=== PATIENT | female | born 1990 | race African-American/Black ===

== ENCOUNTER → 2019-09-13 | Outpatient (CLI) | payer OTHER ==
[2019-09-13 18:04] LABS: ABSOLUTE LYMPHOCYTES (AUTO) 2.2 10^3/uL (0.5-4.7); ABSOLUTE MONOCYTES (AUTO) 0.7 10^3/uL (0.1-1.4); ABSOLUTE NEUT (AUTO) 7.5 10^3/uL (1.7-8.2); BASOPHILS % (AUTO) 0.3 % (0-2); EOSINOPHILS % (AUTO) 0.4 % (0-6); HEMATOCRIT 36.1 % (36.0-47.0); HEMOGLOBIN 12.3 g/dL (12.0-15.5); LYMPHOCYTES % (AUTO) 20.8 % (13-45); MEAN CORPUSCULAR HEMOGLOBIN 28.5 pg (27.0-33.4); MEAN CORPUSCULAR HGB CONC 34.2 g/dL (32.0-36.0); MEAN CORPUSCULAR VOLUME 84 fl (80-97); MONOCYTES % (AUTO) 6.6 % (3-13); PLATELET COUNT 234 10^3/uL (150-450); RED BLOOD COUNT 4.33 10^6/uL (3.72-5.28); SEGMENTED NEUTROPHILS % (AUTO) 71.9 % (42-78); TOTAL CELLS COUNTED % (AUTO) 100 %; WHITE BLOOD COUNT 10.4 10^3/uL (4.0-10.5)
[2019-09-15 07:37] LABS: HEPATITIS C VIRUS AB <0.1 s/co ratio (0.0-0.9)
[2019-09-16 07:21] LABS: HEPATITS B SURFACE ANTIGEN Negative (Negative)
== END ==
LOC: OD 17:05
PROVIDERS: ATTEND Obstetrics & Gynecology
DX: Z34.83 Encounter for supervision of other normal pregnancy, third trimester (principal); Z13.0 Encounter for screening for diseases of the blood and blood-forming organs and certain disorders involving the immune mechanism; Z13.29 Encounter for screening for other suspected endocrine disorder; Z11.3 Encounter for screening for infections with a predominantly sexual mode of transmission
CPT/HCPCS: 36415; 83020; 84443; 85025; 86592; 86701; 86762; 86803; 86804; 86850; 86900; 86901; 87077; 87081; 87086; 87088; 87340; 87491; 87591

== ENCOUNTER 2019-10-11 00:40 | Outpatient (CLI) | payer OTHER ==
[2019-10-11 01:26] LABS: APPEARANCE,URINE SLIGHTLY-CLOUDY; BILIRUBIN,URINE NEGATIVE (NEGATIVE); COLOR,URINE YELLOW; GLUCOSE, URINE NEGATIVE (NEGATIVE); KETONES,URINE 20 mg/dL (NEGATIVE); LEUKOCYTE ESTERASE,URINE LARGE (NEGATIVE); NITRITE,URINE NEGATIVE (NEGATIVE); PROTEIN,URINE NEGATIVE (NEGATIVE); URINE SPECIFIC GRAVITY 1.011; UROBILINOGEN,URINE NEGATIVE mg/dL (<2.0)
[2019-10-11 02:01] LABS: URINE AMPHETAMINES SCREEN NEGATIVE; URINE BARBITURATES SCREEN NEGATIVE; URINE BENZODIAZEPINES SCREEN NEGATIVE; URINE COCAINE SCREEN NEGATIVE; URINE MARIJUANA (THC) SCREEN NEGATIVE; URINE METHADONE SCREEN NEGATIVE; URINE PHENCYCLIDINE SCREEN NEGATIVE
== END 2019-10-11 02:17 | disposition home or self-care (01) ==
LOC: LC 00:40
PROVIDERS: ATTEND Obstetrics & Gynecology Gynecology
PROC: 4A1HXCZ Monitoring of Products of Conception, Cardiac Rate, External Approach (ICD-10-PCS; principal; 2019-10-11)
DX: O48.0 Post-term pregnancy (principal); Z3A.40 40 weeks gestation of pregnancy
CPT/HCPCS: 80307; 81005; 84112

== ENCOUNTER 2019-10-13 21:07 | Inpatient (IN) | payer OTHER ==
[2019-10-13] MEDS ORDERED: RINGERS SOLUTION,LACTATED 1,000 ML IV PRN (21:29)
[2019-10-13] MEDS ORDERED: PENICILLIN G-K 5 MILLION UNIT VIAL ONE (21:30)
[2019-10-13 21:39] LABS: APPEARANCE,URINE SLIGHTLY-CLOUDY; BILIRUBIN,URINE NEGATIVE (NEGATIVE); COLOR,URINE DARK YELLOW; GLUCOSE, URINE NEGATIVE (NEGATIVE); KETONES,URINE 20 mg/dL (NEGATIVE); LEUKOCYTE ESTERASE,URINE TRACE (NEGATIVE); NITRITE,URINE NEGATIVE (NEGATIVE); PROTEIN,URINE 30 mg/dL (NEGATIVE); URINE SPECIFIC GRAVITY 1.028
[2019-10-13] MEDS ORDERED: LIDOCAINE 1% INJ-PF (10 MG/ML) 30 ML SDV ONE (21:40)
[2019-10-13] MEDS ORDERED: MISOPROSTOL 0.2 MG TABLET ONE (21:40)
[2019-10-13] MEDS ORDERED: OXYTOCIN/NORMAL SALINE 20 UNIT/1,000 ML RTUINJ ONE (21:40)
[2019-10-13] MEDS ORDERED: OXYTOCIN 10 UNIT/ML VIAL ONE (21:40)
[2019-10-13 21:56] LABS: ABSOLUTE BASOPHILS # (AUTO) 0.1 10^3/uL (0.0-0.2); ABSOLUTE LYMPHOCYTES (AUTO) 1.9 10^3/uL (0.5-4.7); ABSOLUTE MONOCYTES (AUTO) 0.7 10^3/uL (0.1-1.4); ABSOLUTE NEUT (AUTO) 9.4 10^3/uL (1.7-8.2); BASOPHILS % (AUTO) 0.4 % (0-2); EOSINOPHILS % (AUTO) 0.2 % (0-6); HEMATOCRIT 37.4 % (36.0-47.0); HEMOGLOBIN 12.3 g/dL (12.0-15.5); LYMPHOCYTES % (AUTO) 15.9 % (13-45); MEAN CORPUSCULAR HEMOGLOBIN 27.4 pg (27.0-33.4); MEAN CORPUSCULAR HGB CONC 32.9 g/dL (32.0-36.0); MEAN CORPUSCULAR VOLUME 83 fl (80-97); PLATELET COUNT 239 10^3/uL (150-450); RED CELL DISTRIBUTION WIDTH 14.1 % (11.5-14.0); SEGMENTED NEUTROPHILS % (AUTO) 77.5 % (42-78); TOTAL CELLS COUNTED % (AUTO) 100 %; WHITE BLOOD COUNT 12.2 10^3/uL (4.0-10.5)
[2019-10-13 21:59] LABS: URINE AMPHETAMINES SCREEN NEGATIVE; URINE BARBITURATES SCREEN NEGATIVE; URINE BENZODIAZEPINES SCREEN NEGATIVE; URINE COCAINE SCREEN NEGATIVE; URINE MARIJUANA (THC) SCREEN NEGATIVE; URINE METHADONE SCREEN NEGATIVE; URINE PHENCYCLIDINE SCREEN NEGATIVE
[2019-10-13] MEDS ORDERED: PENICILLIN G POTASSIUM 5,000,000 UNIT in DEXTROSE 5%-WATER 100 ML IV ONE (22:00)
[2019-10-13] MEDS ORDERED: RINGERS SOLUTION,LACTATED 1,000 ML IV ONE (22:00)
[2019-10-13] MEDS ORDERED: EPHEDRINE SULFATE INJ 50 MG/1 ML AMPULE ONE (23:28)
[2019-10-13] MEDS ORDERED: BUPIVACAINE HCL 0.25 % INJ/PF (2.5 MG/1 ML) 30 ML VIAL ONE (23:29)
[2019-10-13] MEDS ORDERED: FENTANYL/BUPIVACAINE/NS/PF 300 MCG/150 ML RTUINJ EPI ONE (23:29)
[2019-10-14] MEDS ORDERED: PENICILLIN G-K 5 MILLION UNIT VIAL ONE (01:35)
--- NOTE | 2019-10-14 01:38 | Admission Physical ---
Datetime Report Generated by CPN: 10/14/2019 01:37 CURRENT ADMISSION Chief Complaint: Uterine Contractions Indication for Induction: Not Applicable Admit Impression : Term, Intrauterine ; Active Labor Admit Plan: Admit to Unit; Initiate Labor Protocol ALLERGIES Medication Allergies: No Medication Allergies: No Known Allergies (10/11/2019) Latex: No Latex Allergies OBSTETRICAL HISTORY EDC: 10/09/2019 00:00 : 5 Para: 1 Term: 1 SAB: 3 Gestational Diabetes: No Rh Sensitization: No Incompetent Cervix: No THA: No Infertility: No ART Treatment: No Uterine Anomaly: No IUGR: No Hx Previous C/S: No Macrosomia: No Hx Loss/Stillborn: No PIH: No Hx : No Placenta Previa/Abruption: No Depression/PP Depression: No PTL/PROM: No Post Hemorrhage: No Current Procedures: Ultrasound; NST SEE RECORDS Alcohol: No Marijuana : No Cocaine: No Other Illicit Drugs: No Cigarettes: Never Smoker. 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 Surgery: No Heart Disease: No Hosp/Surgery: No Autoimmune Disorder: No Anesthetic Complications: No Kidney Disease: No Abnormal Pap Smear: No Neuro/Epilepsy: No Psychiatric Disorders: No Other Medical Diseases: No Hepatitis/Liver Disease: No Significant Family History: No Varicosities/Phlebitis: No Trauma/Violence : No Thyroid Dysfunction: No INFECTIOUS HISTORY Gonorrhea: No Genital Herpes: Yes Chlamydia: No Tuberculosis: No Syphilis: No Hepatitis: No HIV/AIDS Exposure: No Rash or Viral Illness: No HPV: No PHYSICAL EXAM General: Normal HEENT: Normal Neurologic: Normal Thyroid: Deferred Heart: Normal Lungs: Normal Breast: Deferred Back: Normal Abdomen: Normal Genitourinary Exam: Normal Extremities: Normal DTRs: Normal Pelvic Type: Adequate Vital Signs: Reviewed VAGINAL EXAM Dilatation: 5 Effacement: 90 Station: -1 Contraction Comments: q2-3 FETUS A EGA: 40.4 Monitoring: External US FHR- Baseline: 125 Variability: Moderate 6-25bpm Accelerations: 15X15 Decelerations: None FHR Category: Category I Presentation: Vertex Admit Comment: 28yo at 40+ega presents with regular uterine ctx and 5cm. No SROM yet. GBS postive - PCN started. H/o HSV - valtrex started at 36wks - no prodrom. No lesions on exam. Admit to labor and delivery and anticipate . Pt desires to decline epidural but it is available if she desires. PLANS FOR LABOR AND DELIVERY Labor and Delivery: None Pain Management: Epidural Feeding Preference: Breast Benefit of Breast Feed Discussed: Yes Circumcision: Yes INFORMED CONSENT Informed Consent Obtained: Vaginal Delivery; Risks, Benefits and Alternatives Discussed Signature: with User ID: [email or web address]
[2019-10-14] MEDS ORDERED: PENICILLIN G POTASSIUM 2,500,000 UNIT in DEXTROSE 5%-WATER 50 ML IV SCH (02:00)
[2019-10-14] MEDS ORDERED: MEASLES,MUMPS&RUBELLA VACC/PF 0.5 ML VIAL SUBCUT PRN (04:13)
[2019-10-14] MEDS ORDERED: OXYTOCIN/NORMAL SALINE 20 UNIT/1,000 ML RTUINJ IV PRN (04:13)
[2019-10-14] MEDS ORDERED: ZOLPIDEM TARTRATE 5 MG TABLET PO PRN (04:13)
[2019-10-14] MEDS ORDERED: MISOPROSTOL 0.2 MG TABLET PR PRN (04:13)
[2019-10-14] MEDS ORDERED: PSEUDOEPHEDRINE HCL 30 MG TABLET PO PRN (04:13)
[2019-10-14] MEDS ORDERED: PROMETHAZINE HCL 25 MG TABLET PO PRN (04:13)
[2019-10-14] MEDS ORDERED: GLYCERIN/WITCH HAZEL LEAF 1 EACH MED..WIPE TP PRN (04:13)
[2019-10-14] MEDS ORDERED: BENZOCAINE/MENTHOL AEROSOL SPRAY 56 ML TOP PRN (04:13)
[2019-10-14] MEDS ORDERED: PROMETHAZINE HCL INJ 25 MG/1 ML VIAL IV PRN (04:13)
[2019-10-14] MEDS ORDERED: DIPHENHYDRAMINE HCL 25 MG CAPSULE PO PRN (04:13)
[2019-10-14] MEDS ORDERED: DIPH/PERTUSS(ACELL)/TETANUS VAC/PF 0.5 ML SYR (>=10YO) IM PRN (04:13)
[2019-10-14] MEDS ORDERED: PROMETHAZINE HCL 25 MG SUPP.RECT PR PRN (04:13)
[2019-10-14] MEDS ORDERED: ACETAMINOPHEN WITH CODEINE #3 TABLET PO PRN ×2 (04:13)
[2019-10-14] MEDS ORDERED: MAGNESIUM HYDROXIDE SUSP 30 ML UDCUP PO PRN (04:13)
[2019-10-14] MEDS ORDERED: DIBUCAINE 1% OINTMENT 28 GM TP PRN (04:13)
[2019-10-14] MEDS ORDERED: ACETAMINOPHEN 325 MG TABLET PO PRN (04:13)
[2019-10-14] MEDS ORDERED: NA PHOS,M-B/NA PHOS,DI-BA (ADULT) 133 ML ENEMA PR PRN (04:13)
--- NOTE | 2019-10-14 05:35 | Delivery Summary ---
Del Sum A-C Datetime Report Generated by CPN: 10/14/2019 05:35 DELIVERY PERSONNEL DELIVERY PERSONNEL: [id number] Delivery Doctor:: Gianna Salazar MD Anesthesiologist:: Juan Manuel Christopher MD Labor and Delivery Nurse:: AMBER Velazquez Labor and Delivery Nurse:: Anila Jama RN MATERNAL INFORMATION Delivery Anesthesia: Epidural Medications After Delivery: Pitocin Drip 20 Units/1000ml NSS; Cytotec 1000mcg Per Rectum/Vagina Estimated Blood Loss (ml): 250 Delivery QBL: 250 Delivery QBL Comment: 250ml Maternal Complications: None Provider Comments: VMI Delivered in [place] presentation. nuchal cord x1 reduced. Shoulders and body delivered without difficulty. Cord doubly clamped and cut and infant to maternal abdomen. FF at U. good hemostasis after repair of 1st degree laceration. Cytotec 1000mcg per rectum. Mother and baby stable upon provider leaving the room LABOR SUMMARY EDC: 10/09/2019 00:00 No. Babies in Womb: 1 Attempted: No Labor Anesthesia: Epidural LABOR INFORMATION Reason for Induction: Not Applicable Onset of Labor: 10/13/2019 19:30 Complete Dilatation: 10/14/2019 03:40 Oxytocin: N/A Group B Beta Strep: positive Antibiotics # of Doses: 2 Antibiotics Time of Last Dose: 137 Name of Antibiotic Given: penicillin Steroids Given: None Reason Steroids Not Administered: Not Applicable MEMBRANES Membranes Rupture Method: Artificial Rupture of Membranes: 10/14/2019 02:03 Length of Rupture (hr): 1.68 Amniotic Fluid Color: Clear Amniotic Fluid Amount: Moderate Amniotic Fluid Odor: None STAGES OF LABOR Stage 1 hr: 8 Stage 1 min: 10 Stage 2 hr: 0 Stage 2 min: 4 Stage 3 hr: 0 Stage 3 min: 5 Total Time in Labor hr: 8 Total Time in Labor min: 19 VAGINAL DELIVERY Episiotomy: None Laceration #1: Perineal Laceration Extension #1: First Degree Laceration Repair: Yes Laceration Repair Note: fist degree perineal laceration repaired with good hemostasis. Sponge Count Correct: Yes Sharps Count Correct: Yes BABY A INFORMATION Delivery Date/Time: 10/14/2019 03:44 Method of Delivery: Vaginal Born in Route : No : N/A Forceps: N/A Vacuum Extraction: N/A Shoulder Dystocia : No PRESENTATION/POSITION BABY A Presentation: Cephalic Cephalic Presentation: Vertex Vertex Position: Right Occipital Anterior Breech Presentation: N/A PLACENTA INFORMATION BABY A Placenta Delivery Time : 10/14/2019 03:49 Placenta Method of Delivery: Spontaneous Placenta Status: Delivered SCORES BABY A Heart Rate 1 min: >100 bpm Resp Effort 1 min: Good Cry Reflex Irritability 1 min: Cough or Sneeze or Pulls Away Muscle Tone 1 min: Active Motion Color 1 min: Body Garnet, Extremities Blue SCORE 1 MIN: 9 Heart Rate 5 min: >100 bpm Resp Effort 5 min: Good Cry Reflex Irritability 5 min: Cough or Sneeze or Pulls Away Muscle Tone 5 min: Active Motion Color 5 min: Body Garnet, Extremities Blue SCORE 5 MIN: 9 INFORMATION BABY A Gestational Age at Delivery: 40.5 Gestational Status: Full Term- 39- 40.6 Weeks Outcome : Liveborn Condition : Stable Infant Sex: Male IDENTIFICATION BABY A Verification Date/Time: 10/14/2019 03:56 ID Band Number: [id number] Mother's Name Verified: Yes Infant RN Verifying Infant: Johanne Jama IGOR Additional Verifying Personnel: Sandoval Flaherty RN WEIGHT/LENGTH BABY A Infant Birthweight (gm): 4180 Infant Weight (lb): 9 Infant Weight (oz): 3 Length (in): 21.50 Length (cm): 54.61 CORD INFORMATION BABY A No. Cord Vessels: 3 Nuchal Cord : Around Neck x1, Tight Cord Blood Taken: Yes-For Eval (Mom's Blood Type - or O+) Infant Suction: None ASSESSMENT BABY A Infant Complications: None Physical Findings at Delivery: Within Normal Limits Infant Respirations: Appears Normal Skin to Skin: Yes Skin to Skin Time (min): 30 Physical Meteorologist/ALS Called : No Care By: D Fredy RN Transferred To: Remains with Mother BABY B INFORMATION : N/A SIGNATURES Signature: with User ID: [email or web address]
[2019-10-14] MEDS: IBUPROFEN 800 MG TABLET PO SCH ×3 (06:25→21:24)
[2019-10-14] MEDS: DOCUSATE SODIUM 100 MG CAPSULE PO SCH ×2 (10:57→18:37)
[2019-10-14] MEDS: FERROUS SULFATE 325 MG TABLET PO SCH ×2 (10:57→18:37)
[2019-10-14] MEDS: SENNOSIDES/DOCUSATE 8.6-50 MG 1 EACH TABLET PO SCH (10:57)
[2019-10-14] MEDS: FAMOTIDINE 20 MG TABLET PO SCH ×2 (10:57→21:24)
--- NOTE | 2019-10-14 11:06 | PDOC PROGRESS REPORT ---
Subjective-OB Progress Note for:: 10/14/19 - Delivery Day, doing well on PP floor, , UOB, voiding Physical Exam (OB) Vital Signs: Temp Pulse Resp BP Pulse Ox 99.1 F 79 16 129/72 H 98 10/14/19 07:36 10/14/19 07:36 10/14/19 07:36 10/14/19 07:36 10/14/19 07:36 Intake & Output 10/13/19 10/14/19 10/15/19 06:59 06:59 06:59 Weight 69.1 kg - General General Appearance: Appears well, Alert In distress: None - Respiratory Respiratory Status: No respiratory distress - Genitourinary Genitourinary Note: voiding - Neurological Cognition: Normal Orientation: AAOx4 Objective-Diagnostic Laboratory: 10/13/19 21:41 10/13/19 10/13/19 10/13/19 21:15 21:41 21:41 WBC 12.2 H RBC 4.50 Hgb 12.3 Hct 37.4 MCV 83 MCH 27.4 MCHC 32.9 RDW 14.1 H Plt Count 239 Seg Neutrophils % 77.5 Urine Color DARK YELLOW Urine Appearance SLIGHTLY-CLOUDY Urine pH 5.0 Ur Specific [place] 1.028 Urine Protein 30 H Urine Glucose (UA) NEGATIVE Urine Ketones 20 H Urine Blood NEGATIVE Urine Nitrite NEGATIVE Ur Leukocyte Esterase TRACE H Blood Type O POSITIVE Antibody Screen NEGATIVE Assessment and Plan(PN) - Assessment and Plan (1) Active labor at term Is this a current diagnosis for this admission?: Yes (2) Carrier or suspected carrier of group B Streptococcus Is this a current diagnosis for this admission?: Yes (3) Genital herpes affecting Qualifiers: Trimester: third trimester Qualified Code(s): O98.313 - Other infections w ith a predominantly sexual mode of transmission complicating , third trimester; A60.09 - Herpesviral infection of other urogenital tract Is this a current diagnosis for this admission?: Yes (4) Obstetrical laceration, first degree Is this a current diagnosis for this admission?: Yes (5) Vaginal delivery Is this a current diagnosis for this admission?: Yes Plan:: Ambulation encouraged, Routine PP orders - Time Spent with Patient Time with patient: Less than 15 minutes Medications reviewed and adjusted accordingly: Yes - Disposition Anticipated Discharge: Home Within: within 48 hours
[2019-10-14] MEDS: PRENATAL VITAMIN W DHA CAPSULE PO SCH (11:23)
[2019-10-14] MEDS ORDERED: FAMOTIDINE 20 MG TABLET ONE (21:17)
[2019-10-15] MEDS: IBUPROFEN 800 MG TABLET PO SCH ×3 (05:52→21:46)
[2019-10-15 06:57] LABS: HEMATOCRIT 32.8 % (36.0-47.0); HEMOGLOBIN 10.7 g/dL (12.0-15.5); MEAN CORPUSCULAR HEMOGLOBIN 27.3 pg (27.0-33.4); MEAN CORPUSCULAR HGB CONC 32.8 g/dL (32.0-36.0); MEAN CORPUSCULAR VOLUME 83 fl (80-97); PLATELET COUNT 204 10^3/uL (150-450); RED BLOOD COUNT 3.94 10^6/uL (3.72-5.28); RED CELL DISTRIBUTION WIDTH 14.3 % (11.5-14.0); WHITE BLOOD COUNT 13.7 10^3/uL (4.0-10.5)
[2019-10-15] MEDS: DOCUSATE SODIUM 100 MG CAPSULE PO SCH ×2 (09:49→19:24)
[2019-10-15] MEDS: FERROUS SULFATE 325 MG TABLET PO SCH ×2 (09:49→19:24)
[2019-10-15] MEDS: SENNOSIDES/DOCUSATE 8.6-50 MG 1 EACH TABLET PO SCH (09:49)
[2019-10-15] MEDS: PRENATAL VITAMIN W DHA CAPSULE PO SCH (09:50)
[2019-10-15] MEDS: FAMOTIDINE 20 MG TABLET PO SCH ×2 (09:50→21:45)
--- NOTE | 2019-10-15 09:55 | PDOC PROGRESS REPORT ---
Subjective-OB Progress Note for:: 10/15/19 Subjective: Pt doing well, no concerns. She reports light bleeding, reg diet and voiding without difficulty. Physical Exam (OB) Vital Signs: Temp Pulse Resp BP Pulse Ox 97.6 F 62 16 97/57 L 98 10/15/19 07:55 10/15/19 07:55 10/15/19 07:55 10/15/19 07:55 10/15/19 07:55 Intake & Output 10/14/19 10/15/19 10/16/19 06:59 06:59 06:59 Weight 69.1 kg - PIH/Pre-Eclampsia DTR's: 1 + Clonus: Negative Headache: Absent Epigastric Pain: No Visual Changes: No - Lochia Lochia Amount: Small 10-25 ml Lochia Color: Rubra/Red - Abdomen Description: Soft, Round Hernia Present: No Fundal Description: Firm, Midline Fundal Height: u/u - u/2 Objective-Diagnostic Laboratory: 10/15/19 06:34 10/15/19 06:34 WBC 13.7 H RBC 3.94 Hgb 10.7 L Hct 32.8 L MCV 83 MCH 27.3 MCHC 32.8 RDW 14.3 H Plt Count 204 Assessment and Plan(PN) - Assessment and Plan (1) Active labor at term Is this a current diagnosis for this admission?: Yes (2) Carrier or suspected carrier of group B Streptococcus Is this a current diagnosis for this admission?: Yes (3) Genital herpes affecting Qualifiers: Trimester: third trimester Qualified Code(s): O98.313 - Other infections with a predominantly sexual mode of transmission complicating , third trimester; A60.09 - Herpesviral infection of other urogenital tract Is this a current diagnosis for this admission?: Yes (4) Obstetrical laceration, first degree Is this a current diagnosis for this admission?: Yes (5) Vaginal delivery Is this a current diagnosis for this admission?: Yes - Time Spent with Patient Time with patient: Less than 15 minutes Medications reviewed and adjusted accordingly: Yes - Disposition Anticipated Discharge: Home Within: within 24 hours
[2019-10-15] MEDS ORDERED: FAMOTIDINE 20 MG TABLET ONE (21:40)
[2019-10-16] MEDS: IBUPROFEN 800 MG TABLET PO SCH (05:14)
[2019-10-16 09:05] VITALS: BP 98/62
[2019-10-16] MEDS: SENNOSIDES/DOCUSATE 8.6-50 MG 1 EACH TABLET PO SCH (09:53)
[2019-10-16] MEDS: FERROUS SULFATE 325 MG TABLET PO SCH (09:53)
[2019-10-16] MEDS: DOCUSATE SODIUM 100 MG CAPSULE PO SCH (09:53)
[2019-10-16] MEDS: FAMOTIDINE 20 MG TABLET PO SCH (09:53)
[2019-10-16] MEDS: PRENATAL VITAMIN W DHA CAPSULE PO SCH (09:54)
--- NOTE | 2019-10-16 11:38 | PDOC DISCHARGE SUMMARY ---
Impression - Admit/DC Date/PCP Admission Date/Primary Care Provider: 10/13/19 21:35 SIMONA IRENE MD Discharge Date: 10/16/19 - Discharge Diagnosis (1) Active labor at term Is this a current diagnosis for this admission?: Yes (2) Acute blood loss anemia Is this a current diagnosis for this admission?: Yes (3) Carrier or suspected carrier of group B Streptococcus Is this a current diagnosis for this admission?: Yes (4) Genital herpes affecting Is this a current diagnosis for this admission?: Yes (5) Obstetrical laceration, first degree Is this a current diagnosis for this admission?: Yes (6) Vaginal delivery Is this a current diagnosis for this admission?: Yes - Additional Information Resuscitation Status: Full Code Discharge Diet: As Tolerated, Regular Discharge Activity: Activity As Tolerated, Balance Activity w/Rest, No Lifting Over 10 Pounds, Pelvic Rest, Slowly Increase Activity, No tub bath, Walk Frequently Referrals: SIMONA IRENE MD [Primary Care Provider] - Prescriptions: Ibuprofen [Motrin 800 mg Tablet] 800 mg PO Q8HP PRN #20 tablet PRN Reason: Abdominal Cramping Docusate Sodium [Colace 100 mg Capsule] 100 mg PO BID #60 capsule Ferrous Sulfate [Feosol 325 mg Tablet] 325 mg PO BID #60 tablet Home Medications: Prenat 115/Iron Fum/Folic/Dss [ 19 Tablet] 1 tab PO DAILY 10/11/19 Valacyclovir HCl [Valtrex] 500 mg PO BID 10/11/19 Docusate Sodium [Colace 100 mg Capsule] 100 mg PO BID #60 capsule 10/16/19 Ferrous Sulfate [Feosol 325 mg Tablet] 325 mg PO BID #60 tablet 10/16/19 Ibuprofen [Motrin 800 mg Tablet] 800 mg PO Q8HP PRN #20 tablet 10/16/19 Results Laboratory Results: WBC 13.7 10^3/uL (4.0-10.5) H 10/15/19 06:34 RBC 3.94 10^6/uL (3.72-5.28) 10/15/19 06:34 Hgb 10.7 g/dL (12.0-15.5) L 10/15/19 06:34 Hct 32.8 % (36.0-47.0) L 10/15/19 06:34 MCV 83 fl (80-97) 10/15/19 06:34 MCH 27.3 pg (27.0-33.4) 10/15/19 06:34 MCHC 32.8 g/dL (32.0-36.0) 10/15/19 06:34 RDW 14.3 % (11.5-14.0) H 10/15/19 06:34 Plt Count 204 10^3/uL (150-450) 10/15/19 06:34 Lymph % (Auto) 15.9 % (13-45) 10/13/19 21:41 [place] % (Auto) 6.0 % (3-13) 10/13/19 21:41 Eos % (Auto) 0.2 % (0-6) 10/13/19 21:41 Baso % (Auto) 0.4 % (0-2) 10/13/19 21:41 Absolute Neuts (auto) 9.4 10^3/uL (1.7-8.2) H 10/13/19 21:41 Absolute Lymphs (auto) 1.9 10^3/uL (0.5-4.7) 10/13/19 21:41 Absolute Monos (auto) 0.7 10^3/uL (0.1-1.4) 10/13/19 21:41 Absolute Eos (auto) 0.0 10^3/uL (0.0-0.6) 10/13/19 21:41 Absolute Basos (auto) 0.1 10^3/uL (0.0-0.2) 10/13/19 21:41 Seg Neutrophils % 77.5 % (42-78) 10/13/19 21:41 Urine Color DARK YELLOW 10/13/19 21:15 Urine Appearance SLIGHTLY-CLOUDY 10/13/19 21:15 Urine pH 5.0 (5.0-9.0) 10/13/19 21:15 Ur Specific [place] 1.028 10/13/19 21:15 Urine Protein 30 mg/dL (NEGATIVE) H 10/13/19 21:15 Urine Glucose (UA) NEGATIVE mg/dL (NEGATIVE) 10/13/19 21:15 Urine Ketones 20 mg/dL (NEGATIVE) H 10/13/19 21:15 Urine Blood NEGATIVE (NEGATIVE) 10/13/19 21:15 Urine Nitrite NEGATIVE (NEGATIVE) 10/13/19 21:15 Urine Bilirubin NEGATIVE (NEGATIVE) 10/13/19 21:15 Urine Urobilinogen 4.0 mg/dL (<2.0) H 10/13/19 21:15 Ur Leukocyte Esterase TRACE (NEGATIVE) H 10/13/19 21:15 Urine Ascorbic Acid 20 (NEGATIVE) H 10/13/19 21:15 Urine Opiates Screen NEGATIVE 10/13/19 21:15 Urine Methadone Screen NEGATIVE 10/13/19 21:15 Ur Barbiturates Screen NEGATIVE 10/13/19 21:15 Ur Phencyclidine Scrn NEGATIVE 10/13/19 21:15 Ur Amphetamines Screen NEGATIVE 10/13/19 21:15 U Benzodiazepines Scrn NEGATIVE 10/13/19 21:15 Urine Cocaine Screen NEGATIVE 10/13/19 21:15 U Marijuana (THC) Screen NEGATIVE 10/13/19 21:15 RPR NONREACTIVE (NONREACTIVE) 10/13/19 21:41 HSV I&II IgM Ab 1.88 RATIO (0.00-0.90) H 10/13/19 21:41 HSV I IgG Ab 41.00 index (0.00-0.90) H 10/13/19 21:41 HSV II Specific Ab 1.72 index (0.00-0.90) H 10/13/19 21:41 HSV II IgG Supplemtl Positive (Negative) H 10/13/19 21:41 Blood Type O POSITIVE 10/13/19 21:41 Antibody Screen NEGATIVE 10/13/19 21:41
== END 2019-10-16 13:58 | disposition home or self-care (01) | DRG 806 ==
LOC: LC 21:07 → LR 21:35 → 2S 10-14 06:16
PROVIDERS: ADMIT Student in an Organized Health Care Education/Training Program; ATTEND Student in an Organized Health Care Education/Training Program
PROC: 10E0XZZ Delivery of Products of Conception, External Approach (ICD-10-PCS; principal; 2019-10-14)
PROC: 0HQ9XZZ Repair Perineum Skin, External Approach (ICD-10-PCS; 2019-10-14)
PROC: 10907ZC Drainage of Amniotic Fluid, Therapeutic from Products of Conception, Via Natural or Artificial Opening (ICD-10-PCS; 2019-10-14)
PROC: 3E02340 Introduction of Influenza Vaccine into Muscle, Percutaneous Approach (ICD-10-PCS; 2019-10-14)
DX: O99.824 Streptococcus B carrier state complicating childbirth (principal); D62 Acute posthemorrhagic anemia; Z37.0 Single live birth; O98.32 Other infections with a predominantly sexual mode of transmission complicating childbirth; O90.81 Anemia of the puerperium; A60.09 Herpesviral infection of other urogenital tract; O70.0 First degree perineal laceration during delivery; O69.1XX0 Labor and delivery complicated by cord around neck, with compression, not applicable or unspecified; Z23 Encounter for immunization; Z79.899 Other long term (current) drug therapy; Z3A.40 40 weeks gestation of pregnancy
CPT/HCPCS: 36415; 80307; 81005; 85025; 85027; 86592; 86695; 86696; 86850; 86900; 86901; J2540; J2590; J3010; J3490; J7060